=== PATIENT | female | born 1975 | race Caucasian/White ===

== ENCOUNTER 2018-06-25 18:54 | Emergency (ER) | payer MEDICAID ==
[~2018-06-25] VITALS: Ht 165.1 cm; Wt 111.6 kg
[2018-06-25 19:49] VITALS: BP 129/60
--- NOTE | 2018-06-25 19:52 | NUR ---
TO LOBBY A/W BED, FAWN SWIFT NOTED
--- NOTE | 2018-06-25 20:23 | NUR ---
PT PRESENTS TO ED WITH RASH UNDER ARMS, IN AXILLA, UNDER BREASTS, X15 DAYS. 0/10 PAIN. PT STATES SEEING URGENT CARE PHYSICIAN X1 WK AGO AND PERSCRIBED CREAM FOR ITCHING. PT STATES SEVERE ITCHING THAT IS INTERFERING WITH LIFE. VSS. A&OX4. ER MD AWARE. CONTINUE TO MONITOR.
--- NOTE | 2018-06-25 20:23 | NUR ---
PT AMBULATED TO BED 11
[2018-06-25 21:44] VITALS: BP 122/62
--- NOTE | 2018-06-25 21:52 | NUR ---
Patient discharged with v/s stable. Written and verbal after care instructions given and explained. Patient alert, oriented and verbalized understanding of instructions. Ambulatory with steady gait. All questions addressed prior to discharge. ID band removed. Patient advised to follow up with PMD. Rx of ELIMITE, PERDISONE, ANTIVERT given. Patient educated on indication of medication including possible reaction and side effects. Opportunity to ask questions provided and answered.
== END 2018-06-25 21:52 | disposition home or self-care (01) ==
LOC: MED 18:54
DX: B86 Scabies (principal); L29.9 Pruritus, unspecified
CPT/HCPCS: 99283

== ENCOUNTER 2018-10-12 12:04 | Emergency (ER) | payer MEDICAID ==
[~2018-10-12] VITALS: Ht 165.1 cm; Wt 123.6 kg
[2018-10-12 12:37] VITALS: BP 136/73
--- NOTE | 2018-10-12 15:22 | NUR ---
PT TO ER BED 10
--- NOTE | 2018-10-12 15:45 | NUR ---
PT IS A 43 Y/O FEMALE WHO PRESENTS TO THE ED C/O RASH. PER PT PT WAS PREV SEEN BY MD AND GIVEN RX WITH NO RELIEF. PT REPORTS 9/10 ACHING PAIN THAT DOES NOT RADIATE. PT DENIES CP, SOB, N/V/D. NOTED RASH TO BOTH HANDS, ARMS, ARMPITS. PT AWAKE AND ALERT, RR EVEN/UNLABORED. PT REPOSITIONED FOR COMFORT, BED IN LOWEST POSITION. ER MD DR. NAZARIO NOTIFIED. WILL CONTINUE TO MONITOR. PT WAS SEEN IN [place] FOR SCABIES. MEDHX:HYPOTHRYOID RX:LEVOTHYROXINE
[2018-10-12 17:34] VITALS: BP 134/87
--- NOTE | 2018-10-12 17:35 | NUR ---
Patient discharged with v/s stable. Written and verbal after care instructions given and explained. Patient alert, oriented and verbalized understanding of instructions. Ambulatory with to car. All questions addressed prior to discharge. ID band removed. Patient advised to follow up with PMD. Rx of ivermectin given. Patient educated on indication of medication including possible reaction and side effects. Opportunity to ask questions provided and answered.
== END 2018-10-12 17:35 | disposition home or self-care (01) ==
LOC: MED 12:04
DX: B86 Scabies (principal)
CPT/HCPCS: 99283